=== PATIENT | female | born 1990 | race African-American/Black ===

== ENCOUNTER 2017-11-06 12:35 | Observation (INO) | payer OTHER ==
[~2017-11-06] VITALS: Ht 165.1 cm; Wt 57.2 kg
== END 2017-11-06 14:05 | disposition home or self-care (01) ==
LOC: ER 12:35 → L&D 13:16
PROVIDERS: ADMIT Obstetrics & Gynecology; ATTEND Obstetrics & Gynecology
DX: O26.892 Other specified pregnancy related conditions, second trimester (principal); R10.2 Pelvic and perineal pain; Z3A.25 25 weeks gestation of pregnancy
CPT/HCPCS: 99281; G0378

== ENCOUNTER 2018-02-09 17:20 | Observation (INO) | payer OTHER ==
[~2018-02-09] VITALS: Ht 165.1 cm; Wt 71.7 kg
[2018-02-09] MEDS ORDERED: DEXT 5%/LACTATED RINGERS 1,000 ML IV ONE (18:45)
== END 2018-02-09 19:50 | disposition home or self-care (01) ==
LOC: 8 EST LDRP 17:20
PROVIDERS: ADMIT Obstetrics & Gynecology; ATTEND Obstetrics & Gynecology
DX: O62.9 Abnormality of forces of labor, unspecified (principal); Z3A.39 39 weeks gestation of pregnancy
CPT/HCPCS: 99281; G0378

== ENCOUNTER 2018-02-10 05:43 | Inpatient (IN) | payer OTHER ==
[~2018-02-10] VITALS: Ht 165.1 cm; Wt 71.7 kg
[2018-02-10] MEDS ORDERED: DEXT 5%/LR + PITOCIN 20UNITS/L 1,000 ML IV SCH ×2 (05:59→13:56)
[2018-02-10] MEDS ORDERED: CARBOPROST TROMETHAMINE 250 MCG/ML AMPUL IM PRN (06:00)
[2018-02-10] MEDS ORDERED: METHYLERGONOVINE MALEATE 0.2 MG/ML IM PRN (06:00)
[2018-02-10] MEDS: LACTATED RINGERS 1,000 ML IV SCH ×3 (06:39→12:01)
[2018-02-10 06:52] LABS: EOSINOPHILS % 0.7 % (0.0-5.0); HEMATOCRIT. 32.1 % (36.0-48.0); HEMOGLOBIN. 10.5 g/dL (12.0-16.0); LYMPHOCYTES % 15.3 % (20.0-50.0); MEAN CORPUSCULAR HEMOGLOBIN 26.1 pg (28.0-32.0); MEAN CORPUSCULAR VOLUME 79.9 fL (81.0-99.0); MEAN PLATELET VOLUME 8.2 fl (7.4-10.4); MONOCYTES % 6.2 % (2.0-8.0); NEUTROPHILS % 76.8 % (40.0-76.0); PLATELET 174 x1000/uL (130-400); RED BLOOD CELL COUNT 4.01 mill/uL (4.2-5.4); RED CELL DISTRIBUTION WIDTH 20.1 % (11.6-14.6)
[2018-02-10 07:01] LABS: INR 1.1; PARTIAL THROMBOPLASTIN TIME 26.9 sec (23.4-31.0); PROTHROMBIN TIME 11.4 sec (9.1-11.1)
[2018-02-10 07:15] LABS: CLARITY URINE TURBID (CLEAR); COLOR URINE YELLOW (YELLOW); KETONES URINE NEGATIVE (NEGATIVE); LEUKOCYTE ESTERASE URINE 1+ (NEGATIVE); NITRITE URINE NEGATIVE (NEGATIVE); OCCULT BLOOD URINE 2+ (NEGATIVE); PH URINE 6.5 (4.5-8.0); PROTEIN URINE NEGATIVE (NEGATIVE); SPECIFIC GRAVITY URINE 1.011 (1.005-1.030)
[2018-02-10] MEDS ORDERED: MORPHINE SULFATE/PF 1MG/ML 10ML AMP ONE (07:17)
[2018-02-10] MEDS ORDERED: FENTANYL CITRATE/PF 50MCG/ML 2ML VIAL ONE (07:17)
[2018-02-10] MEDS ORDERED: SODIUM CHLORIDE 0.9% 10ML VIAL ONE (07:19)
[2018-02-10] MEDS ORDERED: PHENYLEPHRINE HCL 10 MG/ML 1ML (IV VIAL) IV ONE (07:19)
[2018-02-10] MEDS ORDERED: GLYCOPYRROLATE 0.2 MG/ML 2ML VIAL ONE (07:19)
[2018-02-10] MEDS ORDERED: BUPIVACAINE HCL/DEXTROSE/PF 0.75% 2ML AMP INJ ONE (07:19)
[2018-02-10] MEDS ORDERED: ONDANSETRON HCL 4MG/2ML INJ ONE (07:19)
[2018-02-10] MEDS ORDERED: EPHEDRINE SULFATE 50MG/ML VIAL ONE (07:19)
[2018-02-10] MEDS ORDERED: OXYTOCIN 10 UNITS/ML 1ML ONE ×2 (07:19→13:06)
[2018-02-10 07:24] LABS: *AMPHETAMINES SCREEN URINE NEGATIVE (NEGATIVE); *BARBITURATES SCREEN URINE NEGATIVE (NEGATIVE); *BENZODIAZEPINES SCREEN URINE NEGATIVE (NEGATIVE); CANNABINOID URINE SCREEN NEGATIVE (NEGATIVE)
[2018-02-10 07:25] LABS: *COCAINE SCREEN URINE NEGATIVE (NEGATIVE); METHADONE URINE SCREEN NEGATIVE (NEGATIVE); OPIATES URINE SCREEN NEGATIVE (NEGATIVE); PHENCYCLIDINE URINE SCREEN NEGATIVE (NEGATIVE)
[2018-02-10] MEDS ORDERED: CEFAZOLIN 2000MG PREMIX 50 ML IV ONE (09:26)
[2018-02-10] MEDS ORDERED: BUTORPHANOL TARTRATE 2 MG/ML VIAL IM PRN (10:00)
[2018-02-10 13:12] LABS: HEPATITIS B SURFACE ANTIGEN NEGATIVE
[2018-02-10] MEDS ORDERED: KETOROLAC 60MG/2ML VIAL IM ONE (13:48)
[2018-02-10] MEDS ORDERED: DIPHENHYDRAMINE 50MG/ML VIAL ONE (13:49)
[2018-02-10] MEDS ORDERED: ONDANSETRON HCL 4MG/2ML INJ IV PRN (14:00)
[2018-02-10] MEDS ORDERED: IBUPROFEN 400MG TABLET PO PRN (14:00)
[2018-02-10] MEDS ORDERED: RHO(D) IMMUNE GLOBULIN 300 MCG/SYR IM PRN (14:00)
[2018-02-10] MEDS ORDERED: LANOLIN OINT 0.25 GM TUBE TOP PRN (14:00)
[2018-02-10] MEDS ORDERED: DIPHENHYDRAMINE 50MG/ML VIAL IV PRN (14:15)
[2018-02-10] MEDS ORDERED: BUTORPHANOL TARTRATE 2 MG/ML VIAL IV PRN (14:15)
[2018-02-10] MEDS ORDERED: NALOXONE HCL 0.4 MG/ML 1ML VIAL IV PRN (14:15)
[2018-02-10 17:30] VITALS: BP 96/49
[2018-02-10 19:30] VITALS: BP 97/56
[2018-02-10] MEDS: DOCUSATE SODIUM 100MG CAPSULE PO SCH (20:54)
[2018-02-10 21:33] VITALS: BP 98/53
[2018-02-10] MEDS: KETOROLAC 30MG/ML VIAL IV PRN (21:33)
[2018-02-11] VITALS: BP 99/58
[2018-02-11 04:00] VITALS: BP 90/50
[2018-02-11 06:45] LABS: HEMATOCRIT. 26.7 % (36.0-48.0); HEMOGLOBIN. 8.5 g/dL (12.0-16.0); MEAN CORPUSCULAR HEMOGLOBIN 25.8 pg (28.0-32.0); MEAN CORPUSCULAR VOLUME 80.8 fL (81.0-99.0); MEAN PLATELET VOLUME 8.6 fl (7.4-10.4); PLATELET 143 x1000/uL (130-400); RED BLOOD CELL COUNT 3.31 mill/uL (4.2-5.4); RED CELL DISTRIBUTION WIDTH 20.3 % (11.6-14.6)
[2018-02-11] MEDS: KETOROLAC 30MG/ML VIAL IV PRN (06:45)
[2018-02-11 08:00] VITALS: BP 95/47
[2018-02-11] MEDS: PRENATAL VIT/FE FUMARATE/FA TABLET PO SCH (09:42)
[2018-02-11 11:20] LABS: PLATELET ESTIMATE NORMAL
[2018-02-11 12:15] VITALS: BP 100/59
[2018-02-11] MEDS: IBUPROFEN 800MG TABLET PO PRN ×2 (12:37→20:38)
[2018-02-11] MEDS ORDERED: DIPHENHYDRAMINE 12.5MG/5ML UDC PO PRN (13:00)
[2018-02-11] MEDS ORDERED: DIPHENHYDRAMINE 25MG CAPSULE PO PRN ×2 (13:15→14:00)
[2018-02-11 16:34] VITALS: BP 102/54
[2018-02-11 20:30] VITALS: BP 107/59
[2018-02-12 04:00] VITALS: BP 102/62
[2018-02-12 07:43] VITALS: BP 99/53
[2018-02-12] MEDS: IBUPROFEN 800MG TABLET PO PRN ×2 (09:02→22:22)
[2018-02-12] MEDS: PRENATAL VIT/FE FUMARATE/FA TABLET PO SCH (09:02)
[2018-02-12 16:08] VITALS: BP 103/55
[2018-02-12 20:00] VITALS: BP 102/53
[2018-02-12] MEDS: DOCUSATE SODIUM 100MG CAPSULE PO SCH (22:21)
[2018-02-13 04:00] VITALS: BP 99/58
[2018-02-13 08:15] VITALS: BP 98/56
[2018-02-13] MEDS: PRENATAL VIT/FE FUMARATE/FA TABLET PO SCH (09:00)
[2018-02-13 12:00] VITALS: BP 100/52
== END 2018-02-13 13:05 | disposition home or self-care (01) | DRG 540 ==
LOC: 8 EST LDRP 05:43 → OBSVTOIN 05:43 → 8 EST LDRP 08:20 → 8EST 17:02
PROVIDERS: ADMIT Obstetrics & Gynecology; ATTEND Obstetrics & Gynecology
PROC: 10D00Z1 Extraction of Products of Conception, Low, Open Approach (ICD-10-PCS; principal; 2018-02-10)
DX: O34.211 Maternal care for low transverse scar from previous cesarean delivery (principal); D62 Acute posthemorrhagic anemia; Z37.0 Single live birth; O77.0 Labor and delivery complicated by meconium in amniotic fluid; Z3A.39 39 weeks gestation of pregnancy; O90.81 Anemia of the puerperium
CPT/HCPCS: 36415; 80305; 86592; 86703; 86762; 86850; 86900; 86920; 87340; 88305; 88307; 99281; J0595; J0690; J1200; J1885; J2274; J2370; J2405; J2590; J3010; J3490; J7120; Q0163; A4315